=== PATIENT | female | born 1950 | race Caucasian/White ===

== ENCOUNTER 2016-12-23 16:59 | Emergency (ER) | payer OTHER, MEDICARE ==
[~2016-12-23] VITALS: Ht 165.1 cm; Wt 100.9 kg
[~2016-12-23 16:59] MED LIST: ACET-1138 PO; ASPEC81 PO; CHOL100010 PO; CLB/200 PO; LEVO112T2 PO; MULT-506 PO; OXYSR10 PO; ROPI1TAB PO; RXC5 PO; SINUS MEDICATION PO
[2016-12-23 17:17] VITALS: TEMP 37.1; Ht 165.1 cm; Wt 100.9 kg
[2016-12-23] MEDS ORDERED: ALBUT/IPRATROP 3MG/0.5MG NEB 3 ML VIAL INH ONE (18:00)
--- NOTE | 2016-12-23 18:00 | EMERGENCY ROOM VISIT NOTE ---
History Report prepared by John: David Shahid Under the Supervision of: Dr. Geoff Jay D.O. First contact with patient: 17:44 Chief Complaint: SHORTNESS OF BREATH Stated Complaint: COUGH, SOB, STUFFY NOSE, HEADACHE Nursing Triage Summary: pt c/o cough, chest congestion and SOB. pt states, "I feel like I can't get enough air." History of Present Illness The patient is a 66 year old female who presents to the Emergency Room with complaints of persistent shortness of breath for the past two weeks. The patient has had cold symptoms for two weeks, including a productive cough and rhinorrhea. She had a fever two days ago, that is currently resolved. The patient also complains of chest and rib pain. The patient has been taking sinus medication. She also used her husbands breathing treatment, which provided some relief. The patient denies any increased leg swelling. The patient called her PCP, who could not take her today because they were booked. The patient denies any history of heart disease or blood clots. She is s/p total hip replacement. The patient denies tobacco or alcohol use. She denies ever being prescribed steroids. Source of History: patient Onset: two weeks Position: other (respiratory) Quality: other (short of breath) Timing: other (persistent) Modifying Factors (Relieving): other (breathing treatment) Associated Symptoms: + chest pain, + cough, + fevers Review of Systems See HPI for pertinent positives & negatives. A total of 10 systems reviewed and were otherwise negative. Past Medical & Surgical Medical Problems: (1) Left Hip Djd Family History No pertinent family history Social History Smoking Status: Never Smoker Marital Status: Housing Status: lives with family Current/Historical Medications Scheduled Acetaminophen (Tylenol Extra Strength), 1,000 MG PO Q8H Albuterol Hfa (Ventolin Hfa), 1 PUFF INH Q4 Aspirin (Aspirin Ec), 81 MG PO DAILY Cholecalciferol (Vitamin D3), 1 CAP PO DAILY Levofloxacin (Levaquin), 750 MG PO DAILY Levothyroxine Sodium (Synthroid), 112 MCG PO DAILY Multivitamin (Multivitamin), 1 TAB PO QAM Ropinirole (Requip), 1 MG PO QID Scheduled PRN Tramadol HCl (Tramadol HCl), 50 MG PO Q6H PRN for Pain [Sinus Medication], 2 TAB PO DAILTPRN PRN for PRN Allergies Coded Allergies: No Known Allergies (Unverified , 12/23/16) Physical Exam Vital Signs Date Time Temp Pulse Resp B/P Pulse Ox O2 Delivery O2 Flow Rate FiO2 12/23/16 18:58 84 20 153/74 100 12/23/16 18:42 82 16 97 Room Air 12/23/16 17:20 93 Room Air 12/23/16 17:17 37.1 87 21 157/85 93 Room Air Physical Exam GENERAL: Patient is awake, alert, and in no acute distress. Patient is resting comfortably and showing no signs of anxiety EYES: The conjunctivae are clear. The pupils are round and reactive. EARS, NOSE, MOUTH AND THROAT: The nose is without any evidence of any deformity. Mucous membranes are moist tongue is midline NECK: The neck is nontender and supple. RESPIRATORY: Lung sounds are diminished at the right base, scattered rhonchi noted throughout, expiratory wheezing in both upper meredith, no conversational dyspnea was noted. CARDIOVASCULAR: Regular rate and rhythm noted there no murmurs rubs or gallops normal S1 normal S2 GASTROINTESTINAL: The abdomen is soft. Bowel sounds are present in all quadrants. Abdomen is nontender MUSCULOSKELETAL/EXTREMITIES: There is no evidence of gross deformity full range of motion is noted in the hips and shoulders SKIN: There is no obvious evidence of any rash. There are no petechiae, pallor or cyanosis noted. Trace pedal edema noted bilaterally, no calf tenderness was noted. NEUROLOGIC: Patient is awake alert and oriented x3. Medical Decision & Procedures ER Provider Diagnostic Interpretation: X-ray results as stated below per interpretation by me and the radiologist. CHEST 2 VIEWS ROUTINE CLINICAL HISTORY: cough dyspnea COMPARISON STUDY: 01/31/2016 FINDINGS: Moderate emphysematous change. Somewhat progressive bibasilar parenchymal markings. This is most prominent medial aspect right as well as left lung base. Mid and upper lungs are considered clear. IMPRESSION: Small bibasilar parenchymal infiltrates. Electronically signed by: Christopher Zavaleta M.D. 12/23/2016 6:45 PM Dictated Date/Time: 12/23/2016 6:45 PM Laboratory Results Test 12/23/16 18:01 Influenza Type A Antigen Neg for Influ A (NEG) Influenza Type B Antigen Neg for Influ B (NEG) Laboratory results per my review. Medications Administered Medications (Trade) Dose Ordered Sig/Saniya Route Start Time Stop Time Status Last Admin Dose Admin Prednisone (PredniSONE TAB) 40 mg NOW STAT PO 12/23/16 17:52 12/23/16 17:54 DC 12/23/16 17:59 40 MG Levofloxacin (Levaquin Tab) 750 mg NOW STAT PO 12/23/16 18:56 12/23/16 18:57 DC 12/23/16 19:11 750 MG ECG Indication: SOB/dyspnea Rate (beats per minute): 79 Rhythm: normal sinus Findings: no acute ischemic change, no ectopy Comparison ECG Date: 31 January 2016 Change: no significant change ED Course 1750: The patient was evaluated in room C1b. A complete history and physical examination were performed. 175: Prednisone 40 mg PO. 1800: DuoNeb 12 ml INH. 185: Levaquin 750 mg PO. 190: Reassessed the patient. Discussed the findings with her. She verbalized understanding and agreement of the plan. The patient is ready for discharge. Medical Decision Prior records/ancillary studies reviewed. Triage Nursing notes reviewed. Additional history obtained from the family. The patient's history was concerning for respiratory difficulties. Differential diagnosis: Etiologies such as infections, reactive airway disease, pneumonia, pneumothorax , COPD, CHF, cardiac ischemia, pulmonary embolism, musculoskeletal, gastrointestinal, as well as others were entertained. The patient is a 66-year-old female who presented to the emergency department for an evaluation of cough. The patient's history and physical exam appeared to be consistent with pneumonia. She was found have signs of infiltrate on chest x- ray. Her EKG did not show any signs of ischemia. She was treated with bronchodilator therapy and prednisone initially numerous department. She was also treated with antibiotic in the emergency department. She was encouraged to rest and avoid any strenuous activity. She was encouraged to call her primary care physician to schedule follow-up appointment. She was also encouraged to return to the emergency Department immediately if symptoms change worsen or the need arises. Impression Primary Impression: PNA (pneumonia) Scribe Attestation The scribe's documentation has been prepared under my direction and personally reviewed by me in its entirety. I confirm that the note above accurately reflects all work, treatment, procedures, and medical decision making performed by me. Departure Information Dispostion Home / Self-Care Prescriptions Albuterol Hfa (VENTOLIN HFA) 200 Puffs/30834 Mcg Aers 1 PUFF INH Q4, #1 INHALER Prov: Geoff Jay, DO 12/23/16 Levofloxacin (Levaquin) 750 Mg Tab 750 MG PO DAILY, #7 TAB Prov: Geoff Jay, DO 12/23/16 Referrals Cody Silver MD (PCP) Forms HOME CARE DOCUMENTATION FORM, IMPORTANT VISIT INFORMATION, Work Instructions Patient Instructions My [facility], Pneumonia Additional Instructions Call your family to schedule a follow-up appointment. Drink plenty of clear liquids. Continue all medications as prescribed. Continue using Motrin and Tylenol as directed for fever body aches.
[2016-12-23] MEDS ORDERED: ASPI81TA28 PO (18:14)
[2016-12-23] MEDS ORDERED: CHOL2000 PO (18:15)
[2016-12-23] MEDS ORDERED: ULT50 PO (18:18)
[2016-12-23 18:42] VITALS: PULSE 82; O2SAT 97
--- NOTE | 2016-12-23 18:47 | DIAGNOSTIC IMAGING REPORT ---
CHEST 2 VIEWS ROUTINE CLINICAL HISTORY: cough dyspnea COMPARISON STUDY: 01/31/2016 FINDINGS: Moderate emphysematous change. Somewhat progressive bibasilar parenchymal markings. This is most prominent medial aspect right as well as left lung base. Mid and upper lungs are considered clear. IMPRESSION: Small bibasilar parenchymal infiltrates. Electronically signed by: Christopher Zavaleta M.D. 12/23/2016 6:45 PM Dictated Date/Time: 12/23/2016 6:45 PM
[2016-12-23] MEDS ORDERED: LEVOFLOXACIN 250 MG TAB PO STA (18:56)
[2016-12-23 18:58] VITALS: BP 153/74; PULSE 84; O2SAT 100
[2016-12-23] MEDS ORDERED: LEVO1TAB35 PO (18:58)
[2016-12-23] MEDS ORDERED: VNTHFA/IN INH (18:58)
== END 2016-12-23 19:15 | disposition home or self-care (01) ==
LOC: C.EDB 17:01 → C.EDC 19:15
DX: J18.9 Pneumonia, unspecified organism (principal); Z79.82 Long term (current) use of aspirin

== ENCOUNTER 2019-11-16 17:55 | Observation (INO) ==
[2019-11-16] MEDS ORDERED: MoRPHine SULFATE 4 MG/ML 1 ML CARP\\VIAL IV STA ×2 (19:57→21:23)
[2019-11-16] MEDS ORDERED: ONDANSETRON INJ 2 MG/ML 2 ML VIAL IV STA (19:57)
[2019-11-16 20:08] LABS: Basophils # (auto) 0.02 K/uL (0-0.2); Basophils % (auto) 0.2 %; Eosinophils # (auto) 0.14 K/uL (0-0.5); Eosinophils % (auto) 1.1 %; Hematocrit (blood only) 40.8 % (37-47); Hemoglobin 13.8 g/dL (12.0-16.0); Immature Granulocytes # (auto) 0.03 K/uL (0.00-0.02); Immature Granulocytes % (auto) 0.2 %; Lymphocytes # (auto) 2.53 K/uL (1.2-3.4); Lymphocytes % (auto) 19.1 %; Mean Corpuscular Hemoglobin 30.7 pg (25-34); Mean Corpuscular Hgb Conc 33.8 g/dL (32-36); Mean Corpuscular Volume 90.7 fL (80-100); Mean Platelet Volume 9.5 fL (7.4-10.4); Monocytes # (auto) 0.86 K/uL (0.11-0.59); Monocytes % (auto) 6.5 %; Neutrophils # (auto) 9.65 K/uL (1.4-6.5); Neutrophils % (auto) 72.9 %; Platelet Count 263 K/uL (130-400); RDW Standard Deviation 46.4 fL (36.4-46.3); White Blood Count 13.23 K/uL (4.8-10.8)
--- NOTE | 2019-11-16 20:11 | XRay Report ---
SINGLE VIEW CHEST CLINICAL HISTORY: Atypical chest pain. FINDINGS: An AP, portable, upright chest radiograph is compared to study dated 12/23/2016. The heart i s top normal for projection. The mediastinal contour is within normal limits. There is chronic elevat ion of the right hemidiaphragm with associated atelectasis. No airspace consolidation or large pleura l effusion is identified. No pneumothorax is seen. The skeletal structures are osteopenic. The bony t horax is grossly intact. IMPRESSION: No active disease in the chest. ACT 112: Negative or not required by law. Electronically signed by: Milton Sheppard M.D. 11/16/2019 8:10 PM
[2019-11-16 20:27] LABS: D Dimer 620 ug/L FEU (0-500)
[2019-11-16 20:37] LABS: Alanine Aminotransferase 26 U/L (12-78); Albumin Level 3.9 gm/dl (3.4-5.0); Aspartate Aminotransferase 15 U/L (15-37); BUN Creatinine Ratio 14.3 (10-20); Blood Urea Nitrogen 14 mg/dl (7-18); Calcium 8.8 mg/dl (8.5-10.1); Carbon Dioxide 24 mmol/L (21-32); Chloride 108 mmol/L (98-107); Est GFR (Non-African American) 57.8; Glucose 106 mg/dl (70-99); Lipase 177 U/L (73-393); Potassium 3.9 mmol/L (3.5-5.1); Sodium 140 mmol/L (136-145)
[2019-11-16 20:42] LABS: Albumin Globulin Ratio 1.1 (0.9-2); Alkaline Phosphatase 107 U/L (45-117); Bilirubin,Total 0.4 mg/dl (0.2-1); Globulin 3.4 gm/dl (2.5-4.0); Total Protein 7.3 gm/dl (6.4-8.2); Troponin I < 0.015 ng/ml (0-0.045)
[2019-11-16] MEDS ORDERED: OPTIRAY 320 125ml IV PRN (20:46)
--- NOTE | 2019-11-16 21:05 | CT Scan Report ---
CT ANGIOGRAM OF THE CHEST CLINICAL HISTORY: Atypical chest pain. Elevated d-dimer. COMPARISON STUDY: Chest x-ray dated 11/16/2019. TECHNIQUE: Following the IV administration of 97 cc of Optiray 320, CT angiogram of the chest was per formed from the upper abdomen to the thoracic inlet utilizing the pulmonary embolus protocol. Images are reviewed in the axial, sagittal, and coronal planes. 3-D MIPS images are created and assessed. IV contrast was administered without complication. A dose lowering technique was utilized adhering to the principles of ALARA. The examination is degraded by streak artifact from the left arm which could not be elevated above the chest. CT DOSE: 887.31 mGy.cm FINDINGS: Thyroid: Imaged portions of the thyroid gland are normal in size and attenuation. Thoracic aorta: The thoracic aorta is normal in caliber and demonstrates standard 3-vessel arch anato my. No dissection is seen. Pulmonary vasculature: The pulmonary trunk is normal in caliber. There are no filling defects identif ied in main, lobar, or segmental pulmonary branches to suggest pulmonary embolus. Heart: The heart is normal in size and without pericardial effusion. Lungs and pleural spaces: There is elevation of the right hemidiaphragm and bibasilar atelectasis. Th ere is mild apical scarring. No airspace consolidation or pleural effusion is identified. The trachea and central airways are clear. Mediastinum: There is no mediastinal lymphadenopathy. Zunilda: Clear. Axillae: There is no axillary lymphadenopathy. Upper abdomen: There is a tiny hiatal hernia. Partially visualized upper abdominal viscera is otherwi se grossly unremarkable. Skeletal structures: The skeletal structures are osteopenic. No lytic or blastic bony lesions are see n. Degenerative change is noted in the shoulders and thoracic spine. IMPRESSION: 1. There is no evidence of pulmonary embolus in the main, lobar, or segmental pulmonary arteries. 2. There is no airspace consolidation or pleural effusion. ACT 112: Negative or not required by law. Electronically signed by: Milton Sheppard M.D. 11/16/2019 9:03 PM
[2019-11-16] MEDS ORDERED: ASPIRIN CHEW 324 MG PO STA (21:23)
[2019-11-16] MEDS ORDERED: NITROGLYCERIN 2% OINTMENT 30GM TUBE EXT STA (21:23)
--- NOTE | 2019-11-16 22:43 | Emergency Department Note ---
Entered by Erma Cervantes acting as a scribe for Hugh Cantu MD ED Provider Note CHIEF COMPLAINT: Chest Pain HISTORY OF PRESENT ILLNESS: The patient is a 69 year old female who presents to the Emergency Room with complaints of chest pain beginning this morning. She has a hx of Afib. She states her pain is located under her left breast bone and radiates to the left side of her neck. She states her pain is constant and rates it as a 6/10 in severity. She took one of her 's nitroglycerin without relief. She has SO B and taking a deep breath worsens her pain. The patient is not on any blood thinners. She notes that eating or drinking does not modify her pain. 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 Pt denies LOC, headache, fevers, chills, diaphoresis, visual changes, neck pain, nausea, vomiting, abdominal pain, back pain, melena, hematochezia, urinary symptoms, weakness, lymphadenopathy, rash, or other complaints. REVIEW OF SYSTEMS: See HPI for pertinent positives and negatives. A total of ten systems were reviewed and were otherwise negative. PMHx/PSHx: Afib DJD SOCIAL HISTORY: Patient lives at home. PHYSICAL EXAM: GENERAL: Awake, alert, well-appearing, in no distress HENT: Normocephalic, atraumatic. Oropharynx unremarkable. EYES: PERRL. Normal conjunctiva. Sclera non-icteric. NECK: Inspection normal. Non-tender. Supple. No nuchal rigidity. FROM. No masses. RESPIRATORY: Clear to auscultation. No wheezes. No rales. Normal respiratory effort. CARDIAC: Normal rate. Normal rhythm. No murmurs. No rubs. Extremities warm and well perfused. Pulses equal. No JVD. GI: Soft, non-distended. No tenderness to palpation. No rebound or guarding. No masses. RECTAL: Deferred. MUSCULOSKELETAL: Atraumatic. Chest examination reveals tenderness along the left sternal border. The back is symmetrical on inspection without obvious abnor mality. There is no CVA tenderness to palpation. No joint edema. LOWER EXTREMITIES: Calves are equal size bilaterally and non-tender. No edema. No discoloration. NEURO: Normal sensorium. No sensory or motor deficits noted. SKIN: No rash or jaundice noted. EMERGENCY DEPARTMENT COURSE: 1941: The patient was evaluated in room A2, and a complete history and physical examination were performed. 2126: Discussed the patient's case with [facility]. The patient will be evaluated for further management. MEDICAL DECISION MAKING: Triage Nursing notes reviewed and agree them. Additional history obtained from the family. The patient's history was concerning for chest pain. Differential diagnosis: Etiologies such as cardiac ischemia, aortic dissection, pulmonary embolism, pneumonia, pneumothorax, musculoskeletal, infections, pericarditis, myocarditis, esophageal rupture, gastrointestinal, as well as others were entertained. Physical examination: As above. ER treatment provided: IV morphine x2 IV Zofran Oral aspirin Nitropaste On reassessment the patient felt better. Diagnostic interpretation by me: The electrocardiogram was negative for pathologic change. The labs revealed an unremarkable hemoglobin and hematocrit. Leukocytosis on CBC. The patient's chemistry panel was unremarkable. Troponin negative. D- dimer elevated. Imaging studies: Chest x-ray was negative for acute process. CT PE study was performed and negative for acute process. No pulmonary emboli noted. Patient has left-sided chest discomfort radiating to her neck. She has a l eukocytosis. Further management will be necessary in the hospital. Patient and significant other were comfortable with the plan. Consultation: A consultation was placed with the hospitalist. The case was discussed and diagnostics were reviewed. The patient was evaluated in the ER for further rebecca atment. IMPRESSION: Left sided chest pain Leukocytosis Elevated D-dimer PLAN: Being Evaluated by Hospitalist The scribe's documentation has been prepared under my direction and personally reviewed by me in its entirety. I confirm that the note above accurately reflects all work, treatment, procedures, and medical decision making performed by me. Impression & Plan Left-sided chest pain, Leukocytosis, Elevated d-dimer Past Med/Surg History Medical History (Updated 11/16/19 @ 21:39 by Erma Cervantes) DJD (degenerative joint disease) of hip (Acute) Paroxysmal A-fib Surgical History No pertinent past surgical history Family History Other No pertinent family history in first degree relatives Social History Feels Safe at Home: Yes Smoking Status: Never smoker Results & Data Vital Signs Vital Signs - 24 hr 11/16/19 17:55 11/16/19 18:13 11/16/19 19:39 Temperature 37.5 C Temperature Source Oral Pulse Rate 91 H Pulse Rate [Right Finger] Pulse Rhythm [Right Finger] Pulse Strength [Right Finger] Respiratory Rate 24 Respiratory Effort / Characteristics Respiratory Depth Blood Pressure 159/89 H Blood Pressure [Right Arm] Blood Pressure Mean 112 Blood Pressure Mean [Right Arm] Blood Pressure Position Lying Blood Pressure Position [Right Arm] Pulse Oximetry 98 100 97 Oxygen Delivery Method Room Air Room Air Sepsis Recent Fever Within 48 Hours Yes Sepsis New/Unexplained Change in Mental Status No Sepsis Action Taken by Nursing No Action Required 11/16/19 20:07 Temperature Temperature Source Pulse Rate Pulse Rate [Right Finger] 100 H Pulse Rhythm [Right Finger] Regular Pulse Strength [Right Finger] Normal Respiratory Rate 18 Respiratory Effort / Characteristics Non-Labored Respiratory Depth Normal Blood Pressure Blood Pressure [Right Arm] 172/87 H Blood Pressure Mean Blood Pressure Mean [Right Arm] 115 Blood Pressure Position Blood Pressure Position [Right Arm] Lying Pulse Oximetry 97 Oxygen Delivery Method Room Air Sepsis Recent Fever Within 48 Hours Sepsis New/Unexplained Change in Mental Status Sepsis Action Taken by [facility] Medications Current Medication List: was personally reviewed by me Laboratory Data Attestation: I reviewed the patient's lab results. Result diagrams: 11/16/19 19:55 11/16/19 19:55 Lab Results 11/16/19 11/16/19 11/16/19 Range/Units 19:55 19:55 19:55 WBC 13.23 H (4.8-10.8) K/uL RBC 4.50 (4.2-5.4) M/uL Hgb 13.8 (12.0-16.0) g/dL Hct 40.8 (37-47) % MCV 90.7 (80-100) fL MCH 30.7 (25-34) pg MCHC 33.8 (32-36) g/dL RDW Std Deviation 46.4 H (36.4-46.3) fL RDW Coeff of Oswaldo 14.0 (11.5-14.5) % Plt Count 263 (130-400) K/uL MPV 9.5 (7.4-10.4) fL Immature Gran % (Auto) 0.2 % Neut % (Auto) 72.9 % Lymph % (Auto) 19.1 % [place] % (Auto) 6.5 % Eos % (Auto) 1.1 % Baso % (Auto) 0.2 % Immature Gran # (Auto) 0.03 H (0.00-0.02) K/uL Neut # (Auto) 9.65 H (1.4-6.5) K/uL Lymph # (Auto) 2.53 (1.2-3.4) K/uL [place] # (Auto) 0.86 H (0.11-0.59) K/uL Eos # (Auto) 0.14 (0-0.5) K/uL Baso # (Auto) 0.02 (0-0.2) K/uL D-Dimer 620 H* (0-500) ug/L FEU Sodium 140 (136-145) mmol/L Potassium 3.9 (3.5-5.1) mmol/L Chloride 108 H (98-107) mmol/L Carbon Dioxide 24 (21-32) mmol/L Anion Gap 8.0 (3-11) BUN 14 (7-18) mg/dl Creatinine 1.00 (0.6-1.2) mg/dl Est Cr Clr Drug Dosing Not Reportable Est GFR ( Amer) 67.0 Est GFR (Non-Af Amer) 57.8 BUN/Creatinine Ratio 14.3 (10-20) Glucose 106 H (70-99) mg/dl Calcium 8.8 (8.5-10.1) mg/dl Total Bilirubin 0.4 (0.2-1) mg/dl AST 15 (15-37) U/L ALT 26 (12-78) U/L Alkaline Phosphatase 107 (45-117) U/L Troponin I < 0.015 (0-0.045) ng/ml Total Protein 7.3 (6.4-8.2) gm/dl Albumin 3.9 (3.4-5.0) gm/dl Globulin 3.4 (2.5-4.0) gm/dl Albumin/Globulin Ratio 1.1 (0.9-2) Lipase 177 (73-393) U/L Administered Medications Ioversol (Optiray 320 125ml) 97 ml IV ONCE PRN PRN Reason: Interaction Checking Stop: 11/20/19 20:45 Last Admin: 11/16/19 20:49 Dose: 97 ml Documented by: [id number] Discontinued Medications Aspirin (Aspirin) 324 mg PO NOW STA Stop: 11/16/19 21:24 Last Admin: 11/16/19 21:36 Dose: 324 mg Documented by: [id number] Morphine Sulfate (Morphine Sulfate) 4 mg IV NOW STA Stop: 11/16/19 19:58 Last Admin: 11/16/19 20:05 Dose: 4 mg Documented by: [id number] Morphine Sulfate (Morphine Sulfate) 4 mg IV NOW STA Stop: 11/16/19 21:24 Last Admin: 11/16/19 21:35 Dose: 4 mg Documented by: [id number] Nitroglycerin (Nitro-Bid 2%) 0.5 inch EXT NOW STA Stop: 11/16/19 21:24 Last Admin: 11/16/19 21:36 Dose: 0.5 inch Documented by: [id number] Ondansetron HCl (Zofran) 4 mg IV NOW STA Stop: 11/16/19 19:58 Last Admin: 11/16/19 20:05 Dose: 4 mg Documented by: [id number] Imaging Data Radiologist's Impression: Radiology results as stated below per my review and the radiologist's interpretation: CT ANGIOGRAM OF THE CHEST CLINICAL HISTORY: Atypical chest pain. Elevated d-dimer. COMPARISON STUDY: Chest x-ray dated 11/16/2019. TECHNIQUE: Following the IV administration of 97 cc of Optiray 320, CT angiogram of the chest was performed from the upper abdomen to the thoracic inlet utilizing the pulmonary embolus protocol. Images are reviewed in the axial, sagittal, and coronal planes. 3-D MIPS images are created and assessed. IV contrast was administered without complication. A dose lowering technique was utilized adhering to the principles of ALARA. The examination is degraded by streak artifact from the left arm which could not be elevated above the chest. CT DOSE: 887.31 mGy.cm FINDINGS: Thyroid: Imaged portions of the thyroid gland are normal in size and attenuation. Thoracic aorta: The thoracic aorta is normal in caliber and demonstrates standard 3-vessel arch anatomy. No dissection is seen. Pulmonary vasculature: The pulmonary trunk is normal in caliber. There are no filling defects identified in main, lobar, or segmental pulmonary branches to suggest pulmonary embolus. Heart: The heart is normal in size and without pericardial effusion. Lungs and pleural spaces: There is elevation of the right hemidiaphragm and bibasilar atelectasis. There is mild apical scarring. No airspace consolidation or pleural effusion is identified. The trachea and central airways are clear. Mediastinum: There is no mediastinal lymphadenopathy. Zunilda: Clear. Axillae: There is no axillary lymphadenopathy. Upper abdomen: There is a tiny hiatal hernia. Partially visualized upper abdominal viscera is otherwise grossly unremarkable. Skeletal structures: The skeletal structures are osteopenic. No lytic or blastic bony lesions are seen. Degenerative change is noted in the shoulders and thoracic spine. IMPRESSION: 1. There is no evidence of pulmonary embolus in the main, lobar, or segmental pulmonary arteries. 2. There is no airspace consolidation or pleural effusion. ACT 112: Negative or not required by law. Electronically signed by: Milton Sheppard M.D. 11/16/2019 9:03 PM SINGLE VIEW CHEST CLINICAL HISTORY: Atypical chest pain. FINDINGS: An AP, portable, upright chest radiograph is compared to study dated 12/23/2016. The heart is top normal for projection. The mediastinal contour is within normal limits. There is chronic elevation of the right hemidiaphragm with associated atelectasis. No airspace consolidation or large pleural effusion is identified. No pneumothorax is seen. The skeletal structures are osteopenic. The bony thorax is grossly intact. IMPRESSION: No active disease in the chest. ACT 112: Negative or not required by law. Electronically signed by: Milton Sheppard M.D. 11/16/2019 8:10 PM ECG Data Attestation: I personally reviewed and interpreted this ECG as follows: Indication: + chest pain Rate (beats per minute): 97 ECG Intervals/blocks: + Normal QRS ECG [place]: + Right axis deviation ECG ST segments: + Nonspecific ST abnormalities ECG Findings: no PACs and no PVCs Blood Pressure Blood Pressure Findings: Elevated blood pressure Blood Pressure Disposition: further management by hospitalist Discharge Plan Visit Data Chief Complaint: Chest Pain Stated Complaint: CHEST PAIN ED Provider: Hugh Cantu Discharge Problem: Left-sided chest pain, Leukocytosis, Elevated d-dimer Patient Disposition: Being Evaluated by Hospitalist Forms Stand Alone Forms: Call Back Authorization, [facility] Prescriptions Prescriptions: No Action multivitamin Tablet 1 tab PO QAM RF: 0 ropinirole 1 mg tablet 1 mg PO QID RF: 0 aspirin 81 mg Tablet,Delayed Release (Dr/Ec) 81 mg PO QAM RF: 0 tramadol 50 mg tablet 50 mg PO Q6H PRN (Reason: Pain) RF: 0 acetaminophen 500 mg Tablet 1,000 mg PO Q8H PRN (Reason: Fever Or Pain) RF: 0 levothyroxine 125 mcg tablet 125 mcg PO 3XWK RF: 0 levothyroxine 112 mcg tablet 112 mcg PO 4XWK RF: 0 cholecalciferol (vitamin D3) [Vitamin D3] 25 mcg (1,000 unit) Capsule 1,000 unit PO QAM RF: 0 Referrals Referrals: Cody Silver MD [Primary Care Provider] - Discharge Problem: Leukocytosis Qualifiers: Leukocytosis type: unspecified Qualified Code(s): D72.829 - Elevated white blood cell count, unspecified The scribe's documentation has been prepared under my direction and personally reviewed by me in its entirety. I confirm that the note above accurately reflects all work, treatment, procedures, and medical decision making performed by me.
[2019-11-16] MEDS ORDERED: ALUMINUM/MAGNESIUM/SIMETH (MAALOX MAX) 30 ML UDC PO STA (23:45)
[2019-11-16] MEDS ORDERED: NITROGLYCERIN SL 0.4 MG/TAB TAB SL PRN (23:45)
[2019-11-16] MEDS ORDERED: TRAMADOL HCL 50 MG TABLET PO PRN (23:45)
[2019-11-16] MEDS ORDERED: ACETAMINOPHEN 325 MG TAB PO PRN (23:45)
[2019-11-16] MEDS ORDERED: ONDANSETRON INJ 2 MG/ML 2 ML VIAL IV PRN (23:45)
[2019-11-16] MEDS ORDERED: TRAZODONE HCL 50 MG TAB PO ONE (23:45)
[2019-11-16] MEDS ORDERED: METOPROLOL TARTRATE 1 MG/ML VIAL IV PRN (23:45)
[2019-11-16] MEDS ORDERED: GABAPENTIN 300 MG CAP PO STA (23:45)
--- NOTE | 2019-11-17 02:16 | History and Physical Report ---
DATE OF ADMISSION: 11/16/2019 CHIEF COMPLAINT: Chest pain. HISTORY OF PRESENT ILLNESS: This is a 69-year-old female with past medical history significant for hypothyroidism, mild diastolic dysfunction. Last echo in August 2019 showed EF of 55%, history of recurrent UTI's, history of restless legs syndrome, osteoarthritis of hip, chronic bilateral low back pain, low serum IgG. Presents with chest pain since today morning. It is midsternal, radiating to the throat. She says it is more on deep breath, but generally it is most likely a pressure-like feeling, 6/10 in severity. Received aspirin, morphine in the ER, and also on nitroglycerin, still has mild discomfort. Denies any shortness of breath, no cough, no fever, no chills, no nausea, no sweating, no dizziness, no headache, no blurred vision, no earache, no runny nose, no sore throat. Appetite is okay. No dysphagia. Normal bowel and bladder movements. No hematuria or burning micturition, no black stools or blood in the stools. Lives with her . Ambulates okay. ALLERGIES: No known drug allergies. PAST MEDICAL HISTORY: As mentioned above. PAST SURGICAL HISTORY: Colonoscopy multiple times, hysteroscopy with biopsy with polypectomy, right knee arthroscopy, lumbar disk arthroplasty, revision of left total hip replacement, right total hip replacement. MEDICATIONS: The patient is on levothyroxine 112 mcg on Friday, , Friday and Friday and 125 mcg on Mondays, Wednesdays and Fridays, tramadol 50 mg p.o. q. 6 hours p.r.n., trazodone 50 mg p.o. at bedtime, Requip 1 mg p.o. q.i.d., gabapentin 300 mg p.o. at bedtime, aspirin 81 mg p.o. daily, vitamin D 2000 units p.o. daily, multivitamin 1 tablet daily. FAMILY HISTORY: Significant for mother had breast cancer, father has heart disorder. SOCIAL HISTORY: . Former smoker, quit in 1999. Smoked for 10 years. Alcohol occasional. No drug use. REVIEW OF SYSTEMS: As per HPI. Rest of the review of systems negative. PHYSICAL EXAMINATION: GENERAL: The patient is of moderate build, not in acute distress. VITAL SIGNS: Temperature 37.5, pulse 100, respiratory rate 18, blood pressure 172/87, oxygen 97% on room air. HEENT: No pallor, no icterus. Pupils equal, round, reactive to light. NECK: No JVD, no neck masses, no carotid bruit. CARDIOVASCULAR: S1, S2 heard, regular rate and rhythm, no murmur, no gallop. RESPIRATORY SYSTEM: Normal AP diameter. No accessory muscle use. No wheezing, no crackles. ABDOMEN: Soft, bowel sounds present, nontender. No distention. CENTRAL NERVOUS SYSTEM: Cranial nerves II-XII grossly intact. Nonfocal. EXTREMITIES: Mild pedal edema, no erythema seen. LABORATORY DATA: WBC 13.2, hemoglobin 13.8, hematocrit 40.8, platelets 263. D-dimer 620. Sodium 140, potassium 3.9, chloride 108, bicarbonate 24, BUN 14, creatinine 1, serum glucose 106, calcium 8.8, total bilirubin 0.4, AST 15, ALT 26, alkaline phosphatase 107. Troponin I less than 0.015. Lipase 177. IMAGING DATA: Chest x-ray, no active disease in the chest. CTA of the chest, no evidence of pulmonary embolism in the main, lobar, or segmental pulmonary arteries. No airspace consolidation or pleural effusion. EKG: Normal sinus rhythm, rate of 97, rightward axis. No significant change from previous EKG. ASSESSMENT AND PLAN: This is a 69-year-old female who presents with chest pain. 1. Chest pain mostly in the middle of the chest, retrosternal, radiating to the throat. She says it is more on taking deep breath, but otherwise pressure-like feeling. Initial workup is negative. D-dimer was elevated, but CTA of the chest is unremarkable. Risk factors of age and blood pressure is elevated, could be situational. We will monitor. We will rule out acute coronary syndrome with serial cardiac enzymes and echocardiogram. We will keep n.p.o. at midnight and consult cardiology in the a.m. for further recommendations. We will also give 1 dose of Maalox if it helps. 2. Elevated blood pressure, could be situational. We will place her on IV Lopressor p.r.n. and monitor the blood pressure. Follow the echocardiogram. 3. History of hypothyroidism. Continue Synthroid. We will follow TSH levels in the a.m. 4. History of chronic mild diastolic dysfunction. She has mild pedal edema, not on any diuretics. We will monitor. Follow the echocardiogram. 5. Restless legs syndrome, on Requip. 6. History of osteoarthritis of the hip, status post bilateral hip replacements, chronic bilateral low back pain. Continue on gabapentin. 7. Deep venous thrombosis prophylaxis, sequential compression devices. DISPOSITION: Observation in med/surg tele. Level 1 full code. Expect to discharge home and follow with the family doctor. Level 1 full code. MTDD
[2019-11-17] MEDS ORDERED: Nursing to Pharmacy Communication ONE (04:13)
[2019-11-17 05:54] LABS: Basophils # (auto) 0.02 K/uL (0-0.2); Basophils % (auto) 0.2 %; Eosinophils # (auto) 0.18 K/uL (0-0.5); Eosinophils % (auto) 1.9 %; Hematocrit (blood only) 39.4 % (37-47); Hemoglobin 12.7 g/dL (12.0-16.0); Immature Granulocytes # (auto) 0.02 K/uL (0.00-0.02); Immature Granulocytes % (auto) 0.2 %; Lymphocytes # (auto) 2.64 K/uL (1.2-3.4); Lymphocytes % (auto) 28.6 %; Mean Corpuscular Hemoglobin 29.9 pg (25-34); Mean Corpuscular Hgb Conc 32.2 g/dL (32-36); Mean Corpuscular Volume 92.7 fL (80-100); Mean Platelet Volume 9.6 fL (7.4-10.4); Monocytes # (auto) 0.68 K/uL (0.11-0.59); Monocytes % (auto) 7.4 %; Neutrophils % (auto) 61.7 %; Platelet Count 269 K/uL (130-400); RDW Coefficient of Variation 14.2 % (11.5-14.5); RDW Standard Deviation 47.9 fL (36.4-46.3); Red Blood Count 4.25 M/uL (4.2-5.4); White Blood Count 9.24 K/uL (4.8-10.8)
[2019-11-17] MEDS: ROPINIROLE HCL 1 MG TABLET PO SCH ×3 (06:19→18:49)
[2019-11-17 06:22] LABS: Calcium 8.3 mg/dl (8.5-10.1); Est GFR (African American) 69.6; Magnesium 2.4 mg/dl (1.8-2.4); Potassium 3.7 mmol/L (3.5-5.1)
[2019-11-17] MEDS ORDERED: LEVOTHYROXINE SODIUM 125 MCG TABLET PO SCH (06:30)
[2019-11-17] MEDS ORDERED: ROPINIROLE HCL 1 MG TABLET PO SCH (09:00)
[2019-11-17] MEDS ORDERED: ASPIRIN 81 MG ECTAB PO SCH ×2 (09:00)
[2019-11-17] MEDS ORDERED: CHOLECALCIFEROL 1,000 UNITS TAB PO SCH (09:00)
[2019-11-17] MEDS ORDERED: MULTIVITAMIN TAB PO SCH (09:00)
--- NOTE | 2019-11-17 10:12 | Ultrasound Report ---
ULTRASOUND BILATERAL LOWER EXTREMITY VENOUS CLINICAL HISTORY: Elevated d-dimer. COMPARISON STUDY: No priors. TECHNIQUE: Real-time, grayscale, and color Doppler sonography of the deep veins of the right and left lower extremity was performed from the inguinal crease to the calf. Compression and augmentation wer e utilized. FINDINGS: There is no sonographic evidence of deep venous thrombosis identified in the right or left lower extremity. The common femoral, superficial femoral, and popliteal veins are patent and normally compressible bilaterally. The greater saphenous vein and the profunda femoris vein at the junction w ith the common femoral vein are clear in both legs. The visualized calf veins are patent bilaterally. IMPRESSION: There is no sonographic evidence of deep venous thrombosis identified in the right or lef t lower extremity. ACT 112: Negative or not required by law. Electronically signed by: Milton Sheppard M.D. 11/17/2019 10:11 AM
--- NOTE | 2019-11-17 11:01 | Electrocardiogram Report ---
Test Reason : Blood Pressure : / mmHG Vent. Rate : 097 BPM Atrial Rate : 097 BPM P-R Int : 152 ms QRS Dur : 098 ms QT Int : 338 ms P-R-T Axes : 016 095 031 degrees QTc Int : 429 ms Normal sinus rhythm Rightward axis Borderline ECG When compared with ECG of 23-DEC-2016 18:03, No significant change was found Confirmed by Cornelio Deluna ([id number]) on 11/17/2019 11:00:35 AM Referred By: REFERRED SELF Confirmed By:Cornelio Deluna
--- NOTE | 2019-11-17 11:04 | Cardiology Consultation ---
Date of Consultation November 17, 2019 Assessment & Plan (1) Pleuritic chest pain: (2) Elevated d-dimer: (3) Paroxysmal A-fib: 69-year-old female admitted with pleuritic chest discomfort. Evaluation for acute coronary syndrome unremarkable thus far including ECG and serial cardiac enzymes. Resting 2D transthoracic echocardiogram pending at this time. ECG without evidence of pericarditis, however, await results of echocardiogram. If there are no regional wall motion abnormalities or pericardial effusion, treat patient with anti-inflammatory medication. In regard to her history of possible atrial fibrillation. There is been no recurrent dysrhythmias per telemetry monitoring thus far. This can be evaluated in the outpatient setting with acquisition of medical records. Further recommendations pending results of echocardiogram. Thank you for allowing to participate in the care of your patient. History of Present Illness Reason for Consultation: Chest pain Requesting Physician: Dr. Carlson Attending Physician: Maal Carlson, DO History of Present Illness 69-year-old female developed chest discomfort in the a.m. 11/16/2019. She describes a sharp and stabbing pain worse with inhalation. Pain 6/10 at its worse. She came to the emergency department after pain did not subside for several hours. In the ED, ECG without ischemic changes, troponins undetectable x3 sets. Pain improving overnight currently down to 4/10. Continues to worsen with deep inspiration. There is no other positional component. Denies personal history of coronary disease, congestive heart failure, diabetes, or rheumatic fever as a child. Reports remote history of atrial fibrillation diagnosed many years ago while living in the [facility]. Elevated d-dimer noted on admission. CT angiogram of the chest negative for pulmonary embolus or dissection. Lower extremity duplex negative for DVT Telemetry reviewed without evidence of dysrhythmia. 2D transthoracic echocardiogram pending at this time. Allergies Allergy/AdvReac Type Severity Reaction Status Date / Time No Known Allergies Allergy Verified 11/16/19 21:39 Home Medications Home Medications Medication Instructions Recorded Confirmed Type acetaminophen 1,000 mg PO Q8H PRN 11/16/19 11/16/19 History aspirin 81 mg PO QAM 11/16/19 11/16/19 History cholecalciferol (vitamin D3) 1,000 unit PO QAM 11/16/19 11/16/19 History [Vitamin D3] gabapentin 300 mg PO HS 11/16/19 11/16/19 History levothyroxine 112 mcg PO 4XWK 11/16/19 11/16/19 History levothyroxine 125 mcg PO 3XWK 11/16/19 11/16/19 History multivitamin 1 tab PO QAM 11/16/19 11/16/19 History ropinirole 1 mg PO QID 11/16/19 11/16/19 History tramadol 50 mg PO Q6H PRN 11/16/19 11/16/19 History trazodone 50 mg PO HS 11/16/19 11/16/19 History Patient History Medical History DJD (degenerative joint disease) of hip (Acute) Paroxysmal A-fib Surgical History No pertinent past surgical history Family History Other No pertinent family history in first degree relatives Social History Preferred Language: Chilean Communication Ability: Effective Industrial Hygiene Manager Required: No Beliefs That Will Affect Care: None Current Living Situation: Spouse Feels Safe at Home: Yes Safety Concerns: Feels Safe At This Time Smoking Status: Never smoker Hx Alcohol Use: Yes Alcohol type: beer Hx Substance Use: No Review of Systems Review of Systems: All systems reviewed & are unremarkable except as noted in HPI & below Physical Exam Constitutional: well developed, well nourished and + obese Respiratory: normal respiratory effort, lungs clear to auscultation Cardiovascular: Rate/Rhythm: regular rate and regular rhythm Heart Sounds: normal S1 and normal S2; no murmur and no cardiac rub Palpation: normal PMI Vessels: radial pulses present; no JVD Extremities: no edema Gastrointestinal (Abdomen): Inspection/Auscultation: abdomen normal to inspection and normal bowel sounds; abdomen not distended Percussion/Palpation: abdomen soft; abdomen nontender, no guarding and abdomen not rigid Musculoskeletal: no cyanosis or clubbing, extremities motor strength 5/5 Skin: no rashes, warm and dry Neurologic: CN's II-XI intact bilaterally and moves all extremities; no focal motor deficits Psychiatric: A+Ox3, euthymic affect Results & Data Vital Signs (Past 12 Hours) Vital Signs Temp Pulse Pulse Resp BP Pulse Ox 11/17/19 07:59 36.6 C 72 16 108/67 90 11/17/19 04:00 36.6 C 72 20 106/60 93 11/17/19 01:25 93 H 11/16/19 23:54 36.6 C 87 20 135/78 94 11/16/19 23:52 36.6 C 87 16 135/78 94 11/16/19 23:05 89 20 133/68 98
--- NOTE | 2019-11-17 11:41 | Electrocardiogram Report ---
Test Reason : Blood Pressure : / mmHG Vent. Rate : 072 BPM Atrial Rate : 072 BPM P-R Int : 180 ms QRS Dur : 096 ms QT Int : 394 ms P-R-T Axes : 020 066 037 degrees QTc Int : 431 ms Normal sinus rhythm Normal ECG When compared with ECG of 16-NOV-2019 18:13, No significant change was found Confirmed by Cornelio Deluna ([id number]) on 11/17/2019 11:41:18 AM Referred By: REFERRED SELF Confirmed By:Cornelio Deluna
[2019-11-17] MEDS ORDERED: KETOROLAC TROMETHAMINE 15 MG/ML VIAL IV ONE (13:30)
--- NOTE | 2019-11-17 17:32 | Discharge Summary ---
Date of Service November 17, 2019 Admission HPI Per Admitting Provider HISTORY OF PRESENT ILLNESS: This is a 69-year-old female with past medical history significant for hypothyroidism, mild diastolic dysfunction. Last echo in August 2019 showed EF of 55%, history of recurrent UTI's, history of restless legs syndrome, osteoarthritis of hip, chronic bilateral low back pain, low serum IgG. Presents with chest pain since today morning. It is midsternal, radiating to the throat. She says it is more on deep breath, but generally it is most likely a pressure-like feeling, 6/10 in severity. Received aspirin, morphine in the ER, and also on nitroglycerin, still has mild discomfort. Denies any shortness of breath, no cough, no fever, no chills, no nausea, no sweating, no dizziness, no headache, no blurred vision, no earache, no runny nose, no sore throat. Appetite is okay. No dysphagia. Normal bowel and bladder movements. No hematuria or burning micturition, no black stools or blood in the stools. Lives with her . Ambulates okay Admission Exam Per Admitting Provider PHYSICAL EXAMINATION: GENERAL: The patient is of moderate build, not in acute distress. VITAL SIGNS: Temperature 37.5, pulse 100, respiratory rate 18, blood pressure 172/87, oxygen 97% on room air. HEENT: No pallor, no icterus. Pupils equal, round, reactive to light. NECK: No JVD, no neck masses, no carotid bruit. CARDIOVASCULAR: S1, S2 heard, regular rate and rhythm, no murmur, no gallop. RESPIRATORY SYSTEM: Normal AP diameter. No accessory muscle use. No wheezing, no crackles. ABDOMEN: Soft, bowel sounds present, nontender. No distention. CENTRAL NERVOUS SYSTEM: Cranial nerves II-XII grossly intact. Nonfocal. EXTREMITIES: Mild pedal edema, no erythema seen. Principal Diagnosis Pleurisy Discharge Data Allergies Allergy/AdvReac Type Severity Reaction Status Date / Time No Known Allergies Allergy Verified 11/16/19 21:39 Consultations 11/16/19 21:51 ED Decision to Admit Stat 11/17/19 08:00 Consult Cardiology Routine Ordered Studies 11/16/19 20:32 CT angio chest PE protocol Stat 11/17/19 08:35 US venous doppler LE Routine Hospital Course (1) Pleuritic chest pain: (2) Elevated d-dimer: 69 yo F nonsmoker presented to the ER with acute onset of eft sided chest pain. She reported pain with deep breathing, and was admitted to the Hospitalist service. As she was low risk for PE, a D-dimer was drawn and slightly elevated at 620. This prompted a CT angio of the chest which was negative for PE or other acute process such as pneumothorax or pneumonia. She was given nitro paste, which she thought helped only slightly. She cannot remember if anything further alleviated her pain, which persisted at a 4/10 into the following day, worse with deep breaths. Serial cardiac enzymes were performed and negative, EKG revealed normal sinus rhythm without evidence of acute ischemia. Cardiology was consulted and recommended an echocardiogram. This revealed an EF 60-65%, mild concentric LVH, thickened mitral valve leaflets that opened well, trace tricuspid regurgitation, no evidence of pericardial effusion or pulmonary hypertension. She was given Toradol which improved her pain overall. She was diagnosed with pleurisy of uncertain etiology and discharged in stable condition to home with naproxen therapy and a close primary care follow-up. At time of discharge she was mentating and ambulating at baseline and tolerating PO. She was oxygenating well on room air and was hemodynamically stable. Telemetry review revealed no evidence of arrhythmia throughout her hospitalization. However, she does report a history of paroxysmal atrial fibrillation. It would be important for the evidence of this to be further explored by her PCP as outpatient via a thorough record review. My current outpatient review for this did not reveal any evidence of a history of atrial fibrillation. Total Time Total Time Spent Total Time Spent (In Minutes): 60 Total Time Includes: Examination of the Patient, Discharge Planning, Medication Reconciliation, Communication With Other Providers and Other (arrange followup) Discharge Plan Discharge Items Patient Disposition: Home - Self-Care Reason For Visit: CHEST PAIN Discharge Diagnosis: Pleurisy Condition on Discharge: Good Activity: Resume your previous activity Non-emergency contact: Primary Care Provider Call non-emergency contact if: you have any medication questions, your symptoms worsen, your pain is not controlled, your pain is worsening, your pain is unusual for you, your pain is concerning for you and you have a fever Follow-up/Referrals: Cody Silver MD [Primary Care Provider] - Diet: Regular Addtl Attending Provider Instructions: Please continue all medications as instructed on discharge list below. You are being given some Naproxen to help with your pain. Please use only if pain is severe, and don't use for more than one week. You may also take up to 3000mg of Tylenol in conjunction with this if you need extra pain control. Please do not exceed more than 3000mg in one day. It is recommended that you follow-up with your primary care physician within one week of discharge to ensure your chest pain has resolved and you are still doing well. As the phone lines are closed this evening, someone will contact you in the morning to help set this up. It was a pleasure taking care of you! Please call if you have any questions or problems. You can reach a [facility] hospitalist on duty at [facility] 24 hours a day by calling [phone]. Take care of yourself. Mala Carlson DO [facility] Pending Studies at Discharge: No Stand-Alone Forms: Call Back Authorization, [facility], Smoking Cessation Medications and DC Order Prescriptions: New naproxen 500 mg tablet 500 mg PO BID PRN (Reason: pain) Qty: 30 RF: 0 Continued multivitamin Tablet 1 tab PO QAM RF: 0 ropinirole 1 mg tablet 1 mg PO QID RF: 0 aspirin 81 mg Tablet,Delayed Release (Dr/Ec) 81 mg PO QAM RF: 0 tramadol 50 mg tablet 50 mg PO Q6H PRN (Reason: Pain) RF: 0 acetaminophen 500 mg Tablet 1,000 mg PO Q8H PRN (Reason: Fever Or Pain) RF: 0 levothyroxine 125 mcg tablet 125 mcg PO 3XWK RF: 0 levothyroxine 112 mcg tablet 112 mcg PO 4XWK RF: 0 cholecalciferol (vitamin D3) [Vitamin D3] 25 mcg (1,000 unit) Capsule 1,000 unit PO QAM RF: 0 trazodone 50 mg tablet 50 mg PO HS RF: 0 gabapentin 300 mg Capsule 300 mg PO HS RF: 0 Discharge Orders: Discharge Order (Routine); Ordered 11/17/19 Ordered By: Mala Carlson Admission Data Admit Date/Time: 11/16/19 22:40 Attending Provider: Mala Carlson Admit Provider: Rj Recio Primary Care Provider: Cody Silver Other Providers: Rj Recio ; Chris Anthony ; Robi Chiu ; Sami Schwarz ; Darius Dixon ; Rene Vital ; Christopher Vance ; Helga Lin ; Le Roberts ; Eliel Martines
[2019-11-17] MEDS ORDERED: TRAZODONE HCL 50 MG TAB PO SCH (21:00)
[2019-11-17] MEDS ORDERED: GABAPENTIN 300 MG CAP PO SCH (21:00)
[2019-11-18] MEDS ORDERED: LEVOTHYROXINE SODIUM 112 MCG TABLET PO SCH (06:30)
== END 2019-11-17 19:17 | disposition home or self-care (01) ==
LOC: 2N 17:55 → ED 17:55 → 2N 23:15